=== PATIENT | female | born 1980 | race Caucasian/White ===

== ENCOUNTER 2017-06-28 17:40 | Outpatient (CLI) | payer MEDICAID, OTHER ==
[~2017-06-28] VITALS: Ht 157.5 cm; Wt 110.1 kg
[2017-06-28 17:56] VITALS: Ht 157.5 cm; Wt 110.1 kg
[2017-06-28 17:57] VITALS: BP 114/65; PULSE 78
[2017-06-28] MEDS ORDERED: PRENAT PO (18:00)
--- NOTE | 2017-06-28 18:12 | RADRPT ---
PROCEDURE: Biophysical profile CLINICAL INDICATION: distress TECHNIQUE: Color and dwyer-scale ultrasound images of an intrauterine gestation were obtained. COMPARISON: None FINDINGS: A single live intrauterine gestation is identified in cephalic position with an estimated hear t rate of 125 beats per minute. The placenta is located anteriorly and has a grade II. The cervix is obscured by head shadows. No evidence of abruption identified. ELLIOT is 10.2 cm. movement 2/2. tone 2/2. breathing movement 2/2. Qualitative AFV 2/2 Total biophysical profile 06/22 IMPRESSION: 06/22 biophysical profile. RPTAT: AA .Eder Villarreal MD, MD Date Time Electronically viewed and signed by .Eder Villarreal MD, on 06/28/2017 18:11 .P/
--- NOTE | 2017-06-29 05:49 | PN ---
Triage Information Date/Time Reason for visit: NST for GDM Weeks of Gestation 37 1/7 /Para 1 Diabetes: gestational Hypertention: none Additional information 37 Year-old G1 with SIUP at 37 1/7 weeks presents for NST and BPP due to GDM. She has been receiving her care with [facility]. She states good movement. She denies nausea, vomiting, shortness of breath, chest pain, and abdominal pain between contractions, headache, visual changes, vaginal bleeding or LOF. Objective Vital Signs Date Time Temp Pulse Resp B/P Pulse Ox O2 Delivery O2 Flow Rate FiO2 06/28/17 17:57 98.6 78 114/65 Heart Rate: 140's Contractions: None Exam General: Patient appears well, alert and oriented, NAD, appropriate mood and affect ABD: gravid, soft, non-tender. Back: No CVA tenderness (B/L) LE: No clubbing, cyanosis, edema, thigh or calf tenderness bilaterally FHT: 140 bpm , moderate variability with acceleration, no deceleration-category I Contractions: None Disposition: Discharge Assessment/Plan 37 Year-old G1 with SIUP at 37 1/7 weeks presents for NST and BPP due to GDM. - FHR: No sign of metabolic acidosis- Category I - Continuous EFM, toco - Contractions: None. - Reactive NST. BPP: 10/10 - Symptoms and sign of labor, preeclampsia, kick count discussed with patient, she voiced understanding. All of her questions answered. - Patient was discharged home in stable condition with the appropriate discharge instructions provided. I would like patient to have close follow-up with her primary physician or outpatient clinic in 1-2 days or return to the ER for worsening symptoms or any other urgent concerns. HONEY WISE Jun 29, 2017 05:49
== END 2017-06-28 21:45 | disposition home or self-care (01) ==
LOC: L-D 17:40 → OBT 17:40
PROVIDERS: ATTEND Obstetrics & Gynecology
DX: O24.419 Gestational diabetes mellitus in pregnancy, unspecified control (principal); Z3A.37 37 weeks gestation of pregnancy
CPT/HCPCS: 76818; Z7500; G0463